=== PATIENT | male | born 1990 | race Caucasian/White ===

== ENCOUNTER 2016-08-19 21:09 | Inpatient (IN) | payer BC, SELFPAY ==
--- NOTE | ~2016-08-19 | DS ---
Unit #: [id number] #: [id number] Patient: RULA ELLIOTT [id number] [address] [address] [id number] I MR#: [id number] NAME: RULA ELLIOTT. ROOM: [facility] Age: 26 Sex: M Admission Date: 08/19/2016 : 1990 Discharge Date: 08/25/2016 Attending Physician: Sandoval Urban III, M.D. Primary Care Physician: Justen Salas M.D. DISCHARGE SUMMARY [facility], Dr. Concepcion. ADMITTING DIAGNOSIS Acute appendicitis. DISCHARGE DIAGNOSIS Acute perforated appendicitis. SECONDARY DIAGNOSES Urinary retention. PROCEDURE PERFORMED 1. 08/20/2016 - he underwent laparoscopic appendectomy. 2. 08/24/2016 - he underwent cystoscopy with removal and replacement of Banuelos catheter. BRIEF HOSPITAL COURSE This is a 26-year-old gentleman who presented with lower abdominal pain. He had acute appendicitis on CT scan. He underwent laparoscopic appendectomy and was found to have perforated diverticulitis. A SANDY drain was placed at the time of surgery. Postoperatively he had an ileus and also developed some urinary retention. He had a Banuelos catheter placed. I am not entirely clear of the details but apparently the Banuelos catheter couldn't be flushed or removed and urology was consulted for replacement of catheter. It was removed successfully on the morning of postoperative day #5 and he was able to void afterwards. His SANDY drain was also discontinued on day #5. He was tolerating solid food prior to discharge. DISPOSITION Discharge to home. DISCHARGE INSTRUCTIONS 1. He is to followup with me in the office in two weeks for check up. 2. He has been instructed to call for fevers of greater than 101 or any worsening abdominal pain. 3. He has been instructed no driving until off pain meds for 24 hours. 4. It is okay to shower. Dictated by... Sandoval Urban III, M.D. Unit #: [id number] #: [id number] Patient: RULA ELLIOTT SYEDA/ts TD: 08/25/2016 08:02 JOB #: [id number] DISCHARGE SUMMARY Page 1 of 1 X Sandoval Urban III, MD X DISCHARGE SUMMARY
--- NOTE | ~2016-08-19 | OR ---
Unit #: [id number] #: [id number] Patient: RULA ELLIOTT [id number] [address] [place], [place] [address] [id number] Johanna MR#: [id number] NAME: RULA ELLIOTT. ROOM: [facility] Date of Procedure: 08/20/2016 Admission Date: 08/19/2016 Surgeon: Sandoval Urban III, M.D. : 1990 Attending Physician: Sandoval Urban III, M.D. Primary Care Physician: Justen Salas M.D. OPERATIVE REPORT PREOPERATIVE DIAGNOSIS Acute appendicitis. POSTOPERATIVE DIAGNOSIS Acute perforated appendicitis. PROCEDURE PERFORMED Laparoscopic appendectomy. ANESTHESIA General. SPECIMENS Appendix to Pathology. COMPLICATIONS None apparent. DRAINS One flat Jaime-Hein drain placed in the right lower quadrant. COMPLICATIONS None apparent. INDICATIONS FOR PROCEDURE This is a 26-year-old gentleman, who presented with acute appendicitis. He is here today for laparoscopic appendectomy. DESCRIPTION OF PROCEDURE After consent was obtained, the patient was brought to the operating room and placed in the supine position. General anesthetic was administered. His abdomen was prepped and draped in standard surgical fashion. I made a 1-cm incision above the umbilicus. I dissected down and elevated the fascia between 2 Carlene clamps. I used a Veress needle to obtain CO2 pneumoperitoneum. Next, a 5-mm trocar was placed in that location without any difficulty. I then placed a 12-mm port in the right lateral abdomen and a 5-mm port in the supraumbilical region. He had a lot of purulent material in the right lower quadrant. There were a lot of inflamed loops of bowel that were adherent to the anterior abdominal wall with a filmy layer of purulence between them. There was no david abscess. I did see that he had an inflamed appendix where it looked like the tip of the appendix had perforated. The base of the appendix was only mildly Unit #: [id number] #: [id number] Patient: RULA ELLIOTT swollen. I was able to create a window at the base of the appendix and the mesoappendix. I fired a blue load of the KIMI stapler across the appendix and a white load across the mesoappendix. Hemostasis was excellent. I placed the appendix in an EndoCatch bag and retrieved it through the right lateral port incision without dilatation of the fascia. I then used the otr flatbed driver and suctioned out as much of the infection as I could. I then placed a flat Jaime-Hein drain in the right lower quadrant and brought it out through the suprapubic port site. I then removed all the trocars releasing the pneumoperitoneum. I injected all port sites with 0.25% plain Marcaine. I reapproximated the skin edges with interrupted 4-0 Vicryl subcuticular suture. Steri-Strips were then applied. The patient tolerated the procedure without any problems and returned to the recovery room in stable condition. Dictated by... Sandoval Urban III, M.D. VCL/renetta TD: 08/20/2016 07:38 JOB #: [id number] OPERATIVE REPORT Page 1 of 1 X Sandoval Urban III, MD PROCEDURE OPERATIVE NOTE
--- NOTE | ~2016-08-19 | HP ---
Unit #: [id number] #: [id number] Patient: RULA ELLIOTT [id number] [address] [place], [place] [address] [id number] Johanna MR#: [id number] NAME: RULA ELLIOTT. ROOM: [id number] Age: 26 Sex: M Admission Date: 08/19/2016 : 1990 Attending Physician: Sandoval Urban III, M.D. Primary Care Physician: Justen Salas M.D. HISTORY AND PHYSICAL CHIEF COMPLAINT Right lower quadrant pain. HISTORY OF PRESENT ILLNESS This is a 26-year-old gentleman who has had right lower quadrant pain for approximately 36 hours. He has had some decrease in appetite and nausea and vomiting. He also complains of some constipation. PAST SURGICAL HISTORY Negative. PAST MEDICAL HISTORY Significant for anxiety. MEDICATIONS Include BuSpar. ALLERGIES He has no known drug allergies. SOCIAL HISTORY He denies any tobacco or alcohol use and he works at [employer]. FAMILY HISTORY Negative for cancer. REVIEW OF SYSTEMS Negative for weight loss, fevers or jaundice and is otherwise as above. I have reviewed the nurse's notes. PHYSICAL EXAMINATION VITAL SIGNS: Temperature is 99.2, heart rate is 116, respiratory rate is 21, blood pressure is 127/97. GENERAL: He is in no acute distress. HEENT: Pupils are equal, reactive to light and accommodation. His extraocular muscles are intact. NECK: Without masses or bruits. LUNGS: Show good breath sounds bilaterally with equal air exchange. CARDIAC: Regular rate and rhythm without murmur. ABDOMEN: Soft, nondistended and he has 2 to 3+ tenderness in the right lower quadrant. EXTREMITIES: Without edema or cyanosis. NEUROLOGIC EXAM: He is alert and oriented. There are no focal deficits. Unit #: [id number] #: [id number] Patient: RULA ELLIOTT DIAGNOSTIC STUDIES LABORATORY: White blood count is elevated. IMAGING: CT scan shows appendicitis. IMPRESSION This is a 26-year-old gentleman who has acute appendicitis. I talked to him about proceeding with laparoscopic appendectomy, possible open. He understands the risks and benefits and wishes to proceed. We discussed the risk of bleeding, infection, abscess, and injury to other structures. Dictated by Vinctina Urban III, M.D. VCL/df TD: 08/20/2016 07:30 JOB #: [id number] HISTORY AND PHYSICAL Page 1 of 1 X Sandoval Urban III, MD X HISTORY AND PHYSICAL
--- NOTE | ~2016-08-19 | CT16 ---
[facility] A Service of [facility] RADIOLOGY TEXT RESULTS PATIENT: RULA ELLIOTT LOCATION: [facility] 475- : [birth year] UNIT #: [id number] AGE: [address]: Sandoval Urban III, MD SEX: M ORDER DR: [id number] [facility] [address] [facility]. [place], [place] [address] [id number] MR#: [id number] Acc #: [id number] NAME: RULA ELLIOTT : 1990 SEX: M STUDY DATE/TIME: 08/21/2016 17:56 UNIT: [facility] ROOM: [facility] STUDY DESCRIPTION: CT Angio Chest for PE Attending Physician: Sandoval Urban III, M.D. Ordering Physician: Brian Albright M.D. Primary Care Physician: Justen Salas M.D. MEDICAL IMAGING REPORT This report is preliminary unless electronic signature is present EXAM CT angiogram of the chest. DATE OF EXAM 08/21/2016 INDICATIONS Dyspnea today. Patient had an appendectomy yesterday. TECHNIQUE Axial CT images were obtained from the thoracic inlet through the dome of the diaphragm following the administration of intravenous contrast material. Following this, 3-D reformatted images were obtained. NOTE: This CT exam was performed with one or more of the following radiation dose reduction techniques: automatic exposure control, adjustment of mA and/or kV according to patient size, and iterative reconstruction. FINDINGS Please note this examination is degraded by timing of the contrast bolus, however, I do not see any large central pulmonary thromboembolus. Thoracic aorta measures within normal size limits and there is no evidence of dissection. There is no pericardial effusion. The thyroid gland, trachea esophagus appear unremarkable. Mediastinal lymph nodes do not appear pathologically enlarged. The patient is noted to have dependent atelectasis. No definite infiltrates are seen. There is marked distension of the stomach which may reflect some nonspecific postoperative ileus, or even worsening of small bowel obstruction as there is increasing dilatation of small bowel loops seen on today's scalp. No other acute abnormalities are seen within the upper abdomen. Review of bony windows does not demonstrate any aggressive osseous abnormalities. STS. [facility] A Service of [facility] RADIOLOGY TEXT RESULTS PATIENT: RULA ELLIOTT LOCATION: [place] [address] : [birth year] UNIT #: [id number] AGE: [address]: Sandoval Urban III, MD SEX: M ORDER DR: IMPRESSION 1. No acute pulmonary thromboembolus seen. 2. Thoracic aorta is normal in caliber and there is no evidence of dissection. 3. This patient does have marked distension of the stomach. I am uncertain if this reflects some ileus or perhaps some worsening of this patient's small bowel obstruction seen on the prior CT from August 19, 2016. Certainly, small bowel loops appear much more dilated on today's exam than on the prior instrument panel assembler from the August 21, 2016. Correlation with clinical presentation is recommended. Depending on symptomatology, patient potentially may benefit from nasogastric decompression. Dictated by... Lana Ellsworth M.D. THIS IS AN ELECTRONICALLY VERIFIED REPORT Lana Ellsworth M.D. at 08/22/2016 4:41 PM TANIYA/maria d TD: 08/21/2016 19:27 JOB #: [id number] MEDICAL IMAGING REPORT Page 1 of 1 COPY
--- NOTE | ~2016-08-19 | OR ---
Unit #: [id number] #: [id number] Patient: RULA ELLIOTT [id number] [address] [place], [place] [address] [id number] Johanna MR#: [id number] NAME: RULA ELLIOTT. ROOM: [facility] Date of Procedure: 08/24/2016 Admission Date: 08/19/2016 Surgeon: aJime Concepcion M.D. : 1990 Attending Physician: Sandoval Urban III, M.D. Primary Care Physician: Justen Salas M.D. OPERATIVE REPORT PREOPERATIVE DIAGNOSIS Retained Banuelos catheter. POSTOPERATIVE DIAGNOSIS Retained Banuelos catheter. PROCEDURES PERFORMED 1. Removal of retained catheter. 2. Cystoscopy with catheter placement. COMPLICATIONS None. DESCRIPTION OF PROCEDURE The patient was taken to operating room and placed under LMA anesthesia per the anesthesia service. He did have an episode of vomiting around the time of induction, but to my review, did not desaturate. The Banuelos catheter is part way out of the penis with about approximately 2 cc remaining in the balloon. The balloon was in the bulbar urethra. Once he was relaxed, I was able to use gentle pressure and removed the catheter. He did have some bleeding from the meatus. Because of the potential for trauma and the previous attempts to remove it, I did elect to replace the catheter. I tried to pass an 18-Ghanaian catheter, but it initially would not place. I then placed a 15-Ghanaian flexible cystoscope into the urethra. There was some ecchymosis noted in the bulbar urethra. No strictures were seen. There was a mildly elevated bladder neck perhaps. The patient was clearly in retention. There was no clot seen. No tumors seen. I placed a wire through the cystoscope and then advanced an 18-Ghanaian Councill tip catheter over the wire into the bladder. The bladder was irrigated off 2 small clots and then drained vega colored urine. No additional clot was seen. The patient was awakened and taken to recovery room in good condition. There were no complications. Dictated by... Jaime Concepcion M.D. JOSE/renetta TD: 08/24/2016 06:32 JOB #: [id number] Unit #: [id number] #: [id number] Patient: RULA ELLIOTT OPERATIVE REPORT Page 1 of 1 X Jaime Concepcion PROCEDURE OPERATIVE NOTE
--- NOTE | ~2016-08-19 | CT2 ---
[facility] A Service of [facility] RADIOLOGY TEXT RESULTS PATIENT: RULA ELLIOTT LOCATION: [facility] : [birth year] UNIT #: [id number] AGE: [address]: Isrrael Snowden MD SEX: M ORDER DR: [id number] [facility] [address] [facility]. [place], [place] [address] [id number] MR#: [id number] Acc #: [id number] NAME: URLA ELLIOTT : 1990 SEX: M STUDY DATE/TIME: 08/19/2016 21:17 UNIT: [facility] ROOM: STUDY DESCRIPTION: CT Abd and Pelv W Cont Attending Physician: Isrrael Snowden M.D. Ordering Physician: Isrrael Snowden M.D. Primary Care Physician: Justen Salas M.D. MEDICAL IMAGING REPORT This report is preliminary unless electronic signature is present EXAM Abdomen and pelvis CT with contrast 08/19/2016 INDICATIONS 26-year-old male with abdominal pain and pelvic pain, nausea, diarrhea, symptoms 2 days, irritable bowel syndrome. TECHNIQUE Contrast-enhanced abdomen and pelvis CT was performed. This CT exam was performed with one or more of the following radiation dose reduction techniques: automatic exposure control, adjustment of mA and/or kV according to patient size, and iterative reconstruction. COMPARISON STUDIES We have no comparisons. FINDINGS CT ABDOMEN: Included lung bases are clear. There is no effusion or pericardial effusion. Aorta demonstrates no aneurysm or dissection. Spleen, adrenal glands and pancreas are unremarkable. The gallbladder is unremarkable and the liver appears normal. Kidneys unremarkable. CT PELVIS: Bladder unremarkable. Prostate within normal limits. Tiny inguinal hernias containing fat only are present. Trace amount of free fluid in the pelvis. The appendix is abnormal. It is dilated up to at 12-13 mm and there is an appendicolith in the appendiceal tip. There is inflammatory change of the appendix and the adjacent periappendiceal fat, most characteristic of [facility] A Service [facility] RADIOLOGY TEXT RESULTS PATIENT: RULA ELLIOTT LOCATION: [facility] : [birth year] UNIT #: [id number] AGE: [address]: Isrrael Snowden MD SEX: M ORDER DR: acute appendicitis. At this point, there is no associated drainable fluid collection or free air. There is probable secondary inflammatory involvement of the distal and terminal ileum related to the acute appendicitis. Intrinsic coexistent distal enteritis or inflammatory bowel disease is felt to be less likely, although not fully excluded. Reactive-appearing right lower quadrant lymph nodes. Trace free fluid in the right pericolic gutter. There is no inguinal adenopathy or fluid collection. Osseous structures demonstrate no suspicious bone lesion. IMPRESSION 1. Abnormal examination; results called to Dr. Archibald in the emergency department. Dr. Snowden was not available to take my call at this time. The examination is abnormal demonstrating acute appendicitis. The appendix is dilated up to 12-13 mm and there is inflammatory change in the right lower quadrant with secondary involvement of small bowel. Surgical referral is recommended. Small amount of free fluid extends into the pelvis and right pericolic gutter. 2. Probable mild small bowel ileus upstream from the appendix. No convincing evidence of bowel obstruction. 3. Probable reactive retroperitoneal and right lower quadrant lymph nodes. STAT * RESULT Dictated by... Paulino West M.D. THIS IS AN ELECTRONICALLY VERIFIED REPORT Paulino West M.D. at 08/19/2016 10:55 PM TESSY/jose TD: 08/19/2016 22:13 JOB #: [id number] MEDICAL IMAGING REPORT Page 1 of 1 COPY
[2016-08-19 20:15] LABS: BASOPHIL% 0.3 % (0-2.5); DIFF IND YES; EOSINOPHIL% 0.1 % (0.0-7.0); HEMATOCRIT 45.8 % (38.0-50.0); HEMOGLOBIN 15.1 gm/dL (13.0-16.0); LYMPHOCYTE% 5.8 % (17.0-45.0); MEAN CELL VOLUME 85.1 FL (83-96); MEAN CORPUSCULAR HEMOGLOBIN 28.1 PG (28-34); MEAN PLATELET VOLUME 7.4 FL (6.5-11.5); MONOCYTE# 1.1 X10e3 (0-1.0); MONOCYTE% 6.6 % (3.0-12.0); NEUTROPHIL# 14.9 X10e3 (1.5-7.1); NEUTROPHIL% 87.2 % (40-75); PLATELET COUNT 266 X10e3 (140-420); RED BLOOD COUNT 5.39 X10e (3.90-5.60); RED CELL DISTRIBUTION WIDTH 13.1 % (11.0-15.5); WHITE BLOOD COUNT 17.1 X10e3 (4.0-10.5)
[2016-08-19 20:35] LABS: ALBUMIN SERUM 4.2 g/dL (3.5-5.0); BILIRUBIN, DIRECT 0.4 mg/dL (0.0-0.2); BILIRUBIN,INDIRECT 1.5 mg/dL (0.0-0.9); BILIRUBIN,TOTAL 1.9 mg/dL (0.2-2.0); BUN/CREATININE RATIO 14.44; CALCIUM SERUM 9.1 mg/dL (8.4-10.2); CREATININE SERUM 0.9 mg/dL (0.6-1.4); GLOM FILT RATE Estimated 116.6 mL/min (>60); POTASSIUM 3.6 mmol/L (3.5-5.1); PROTEIN TOTAL SERUM 7.8 g/dL (6.0-8.3)
[2016-08-19 20:51] LABS: ANISOCYTOSIS SL; PLATELET ESTIMATE NORMAL (NORMAL)
[2016-08-19 23:22] LABS: URINE SOURCE CLEAN CATCH
[2016-08-19 23:30] LABS: URINE APPEARANCE CLEAR; URINE BILIRUBIN NEG (NEG); URINE BLOOD NEG (NEG); URINE COLOR DK YELLOW; URINE GLUCOSE NEG (NEG); URINE KETONE 1+ (NEG); URINE LEUKOCYTE ESTERASE NEG (NEG); URINE NITRATE NEG (NEG); URINE PH 5.5 (5-8); URINE PROTEIN 1+ (NEG); URINE SPECIFIC GRAVITY 1.073 (1.003-1.035)
[2016-08-19 23:34] LABS: URBCS1 AUWI 0-2 /[HPF] (0-2); URINE BACTERIA AUWI NEG (NEGATIVE); URINE SQUAMOUS EPITHELIAL CELL NONE SEEN /[HPF]; UWBCS1 AUWI 0-2 (0-5)
[2016-08-19 23:35] LABS: CULTURE INDICATED? NO
[2016-08-21 03:15] LABS: HEMATOCRIT 36.5 % (38.0-50.0); MEAN CELL VOLUME 86.2 FL (83-96); MEAN CORPUSCULAR HEMOGLOBIN 28.4 PG (28-34); MEAN PLATELET VOLUME 7.6 FL (6.5-11.5); RED BLOOD COUNT 4.24 X10e (3.90-5.60); RED CELL DISTRIBUTION WIDTH 13.3 % (11.0-15.5); WHITE BLOOD COUNT 10.8 X10e3 (4.0-10.5)
[2016-08-22 04:02] LABS: BASOPHIL# 0.1 X10e3 (0-0.3); BASOPHIL% 0.5 % (0-2.5); EOSINOPHIL# 0.1 X10e3 (0-0.7); EOSINOPHIL% 0.6 % (0.0-7.0); HEMOGLOBIN 12.7 gm/dL (13.0-16.0); LYMPHOCYTE# 1.1 X10e3 (1.0-3.5); LYMPHOCYTE% 10.2 % (17.0-45.0); MEAN CELL VOLUME 84.6 FL (83-96); MEAN CORPUSCULAR HEMOGLOBIN 28.3 PG (28-34); MEAN CORPUSCULAR HGB CONC 33.5 g/dL (30-36); MEAN PLATELET VOLUME 7.1 FL (6.5-11.5); MONOCYTE# 0.9 X10e3 (0-1.0); MONOCYTE% 8.3 % (3.0-12.0); NEUTROPHIL# 8.8 X10e3 (1.5-7.1); NEUTROPHIL% 80.4 % (40-75); PLATELET COUNT 266 X10e3 (140-420); RED BLOOD COUNT 4.49 X10e (3.90-5.60); RED CELL DISTRIBUTION WIDTH 13.2 % (11.0-15.5)
[2016-08-22 04:04] LABS: DIFF IND NO
[2016-08-22 04:41] LABS: ALBUMIN SERUM 2.4 g/dL (3.5-5.0); BILIRUBIN,TOTAL 1.4 mg/dL (0.2-2.0); CALCIUM SERUM 8.2 mg/dL (8.4-10.2); CREATININE SERUM 0.8 mg/dL (0.6-1.4); GLOM FILT RATE Estimated 122.5 mL/min (>60); POTASSIUM 3.5 mmol/L (3.5-5.1)
[2016-08-23 01:44] LABS: BASOPHIL% 0.2 % (0-2.5); EOSINOPHIL# 0.2 X10e3 (0-0.7); EOSINOPHIL% 1.4 % (0.0-7.0); HEMATOCRIT 38.5 % (38.0-50.0); HEMOGLOBIN 12.7 gm/dL (13.0-16.0); LYMPHOCYTE# 0.5 X10e3 (1.0-3.5); LYMPHOCYTE% 4.3 % (17.0-45.0); MEAN CELL VOLUME 84.4 FL (83-96); MEAN CORPUSCULAR HEMOGLOBIN 27.8 PG (28-34); MEAN CORPUSCULAR HGB CONC 32.9 g/dL (30-36); MONOCYTE% 8.4 % (3.0-12.0); NEUTROPHIL# 9.9 X10e3 (1.5-7.1); NEUTROPHIL% 85.7 % (40-75); PLATELET COUNT 285 X10e3 (140-420); RED BLOOD COUNT 4.56 X10e (3.90-5.60); RED CELL DISTRIBUTION WIDTH 13.5 % (11.0-15.5); WHITE BLOOD COUNT 11.5 X10e3 (4.0-10.5)
[2016-08-23 01:45] LABS: DIFF IND NO
[2016-08-24 03:27] LABS: HEMATOCRIT 38.9 % (38.0-50.0); HEMOGLOBIN 12.8 gm/dL (13.0-16.0); MEAN CELL VOLUME 84.7 FL (83-96); MEAN CORPUSCULAR HEMOGLOBIN 27.9 PG (28-34); MEAN CORPUSCULAR HGB CONC 32.9 g/dL (30-36); MEAN PLATELET VOLUME 6.5 FL (6.5-11.5); RED BLOOD COUNT 4.59 X10e (3.90-5.60); RED CELL DISTRIBUTION WIDTH 13.1 % (11.0-15.5)
[2016-08-25] MEDS ORDERED: HYDROCODON-ACE1 EAC9 PO (10:23)
== END 2016-08-25 10:55 | disposition home or self-care (01) | DRG 339 ==
LOC: CED 21:09 → CEDOF 23:30 → C4C 08-20 08:03
PROVIDERS: Surgery
PROC: 0DTJ4ZZ Resection of Appendix, Percutaneous Endoscopic Approach (ICD-10-PCS; principal; 2016-08-20 06:00)
PROC: 0TP Urinary System, Removal (ICD-10-PCS; 2016-08-24)
PROC: 0T9B80Z Drainage of Bladder with Drainage Device, Via Natural or Artificial Opening Endoscopic (ICD-10-PCS; 2016-08-24)
DX: K35.2 Acute appendicitis with generalized peritonitis (principal); K57.80 Diverticulitis of intestine, part unspecified, with perforation and abscess without bleeding; K91.3 Postprocedural intestinal obstruction; R33.9 Retention of urine, unspecified; T83.098A Other mechanical complication of other urinary catheter, initial encounter; Y84.6 Urinary catheterization as the cause of abnormal reaction of the patient, or of later complication, without mention of misadventure at the time of the procedure; Y92.239 Unspecified place in hospital as the place of occurrence of the external cause
CPT/HCPCS: 36415; 71275; 74177; 80048; 80053; 80076; 81003; 83690; 85025; 85027; 88304; 94760; 94762; 96361; 96374; 96375; 96376; 99285; C1769; J1100; J1170; J1335; J1650; J1885; J2060; J2185; J2250; J2270; J2405; J2550; J2710; J2765; J3010; Q9967